=== PATIENT | male | born 1990 | race Caucasian/White ===

== ENCOUNTER 2018-11-07 07:45 | Observation (INO) | payer OTHER ==
[~2018-11-07] VITALS: Ht 188 cm; Wt 86.2 kg
[~2018-11-07 07:45] MED LIST: HYDACE5 PO; [UNRECOGNIZED DRUG - REMARK]
[2018-11-07 17:20] LABS: Source, Urine Clean Catch
[2018-11-07 17:25] LABS: BASOPHILS ABSOLUTE AUTO 0.04 K/mm3 (0.00-0.23); BASOPHILS PERCENT AUTO 1 % (0-2); EOSINOPHILS ABSOLUTE AUTO 0.35 K/mm3 (0.00-0.68); EOSINOPHILS PERCENT AUTO 5 % (0-6); Hematocrit 41.7 % (37.0-53.0); Hemoglobin 13.9 g/dL (13.5-17.5); IMMATURE GRAN ABSOLUTE AUTO 0.01 K/mm3 (0.00-0.10); IMMATURE GRAN PERCENT AUTO 0 % (0-1); LYMPHOCYTES PERCENT AUTO 43 % (21-46); MONOCYTES ABSOLUTE AUTO 0.81 K/mm3 (0.16-1.47); MONOCYTES PERCENT AUTO 12 % (4-13); Mean Corpuscular HGB 28.5 pg (26.0-34.0); Mean Corpuscular HGB Conc 33.3 g/dL (31.5-36.5); Mean Corpuscular Volume 86 fL (80-100); Mean Platelet Volume 12.4 fL (9.1-12.4); NEUTROPHILS ABSOLUTE AUTO 2.76 K/mm3 (1.96-9.15); NEUTROPHILS PERCENT AUTO 40 % (41-73); Platelet Count 165 K/mm3 (150-400); RDW Coefficient Variation 12.4 % (11.7-14.2); RDW Standard Deviation 38.8 fL (35.1-46.3); Red Blood Cell Count 4.87 M/mm3 (4.30-5.90); White Blood Cell Count 6.97 K/mm3 (4.00-11.30)
[2018-11-07 17:26] LABS: Bilirubin, Urine Neg (Neg); Blood, Urine Neg (Neg); Glucose Qualitative, Urine Neg (Neg); Ketones, Urine Neg (Neg); Leukocyte Esterase, Urine Neg (Neg); Nitrite, Urine Neg (Neg); Protein, Urine Neg (Neg); Urobilinogen, Urine NORM (Normal); pH, Urine 6.5 (5.0-8.0)
[2018-11-07 17:40] LABS: U Amphetamine Screen Not Detected; U Barbituate Screen Not Detected; U Benzodiazapine Screen Not Detected; U Buprenorphine Screen Not Detected; U Cannabinoids Screen Not Detected; U Cocaine Screen Not Detected; U Methadone Screen Not Detected; U Methamphetamine Screen Not Detected; U Opiates Screen Not Detected; U Oxycodone Screen Not Detected; U Phencyclidine Screen Not Detected; U Propoxyphene Screen Not Detected
[2018-11-07 17:42] LABS: Appearance, Urine Clear (Clear); Color, Urine Yellow (P-Yellow)
[2018-11-07 17:52] LABS: Alanine Aminotransfer (ALT/SGP 25 U/L (12-78); Albumin, Blood 4.2 g/dL (3.4-5.0); Albumin/Globulin Ratio 1.3 (0.8-1.8); Alk Phos 61 U/L (50-136); Anion Gap 5 mmol/L (6-16); Aspartate Aminotrans (AST/SGOT 19 U/L (12-37); Bilirubin, Total 2.4 mg/dL (0.1-1.0); Blood Urea Nitrogen 9 mg/dL (8-24); Bun/Creatinine Ratio 12.9 (12.0-20.0); CO2, Blood 29 mmol/L (21-32); Calcium, Blood 8.6 mg/dL (8.5-10.1); Chloride, Blood 108 mmol/L (98-108); Ethanol (Alcohol), Blood, Med <3 mg/dL; Globulin, Blood 3.2 g/dL (2.2-4.0); Glomerular Filtration Rate >60 (60-); Glucose, Blood 82 mg/dL (70-99); Potassium, Blood 4.5 mmol/L (3.5-5.5); Salicylate <1.7 mg/dL (2.8-20.0); Sodium, Blood 142 mmol/L (136-145); Total Protein, Blood 7.4 g/dL (6.4-8.2)
[2018-11-07 17:58] LABS: Thyroid Stimulating Hormone 0.692 uIU/mL (0.360-4.800)
[2018-11-07 18:03] LABS: Acetaminophen, Random <2.0 ug/mL (10.0-30.0)
== END 2018-11-09 17:58 ==
LOC: ER 07:45 → EOR 07:46
PROVIDERS: ADMIT Emergency Medicine
DX: F23 Brief psychotic disorder (principal); T33.521A Superficial frostbite of right hand, initial encounter; T33.522A Superficial frostbite of left hand, initial encounter; T33.822A Superficial frostbite of left foot, initial encounter; T33.821A Superficial frostbite of right foot, initial encounter; F17.210 Nicotine dependence, cigarettes, uncomplicated; Z88.5 Allergy status to narcotic agent; X31.XXXA Exposure to excessive natural cold, initial encounter
CPT/HCPCS: 80053; 81003; 84443; 85025; 96372; 99285-25; G0378; G0480; J1200; J1630; Q3014

== ENCOUNTER 2019-06-09 10:11 | Emergency (ER) | payer OTHER ==
[~2019-06-09] VITALS: Ht 188 cm; Wt 86.2 kg
[2019-06-09] MEDS ORDERED: PALI3TAB (10:20)
== END 2019-06-09 10:37 | disposition left against medical advice (07) ==
LOC: ER 10:11
DX: Z53.21 Procedure and treatment not carried out due to patient leaving prior to being seen by health care provider (principal)

== ENCOUNTER 2019-07-30 09:00 | Observation (INO) | payer OTHER ==
[~2019-07-30] VITALS: Ht 185.4 cm; Wt 95.2 kg
[~2019-07-30 09:00] MED LIST changes: +PALI3TAB
[2019-07-30 12:09] LABS: BASOPHILS ABSOLUTE AUTO 0.03 K/mm3 (0.00-0.23); BASOPHILS PERCENT AUTO 0 % (0-2); EOSINOPHILS ABSOLUTE AUTO 0.11 K/mm3 (0.00-0.68); EOSINOPHILS PERCENT AUTO 1 % (0-6); Hematocrit 42.1 % (37.0-53.0); Hemoglobin 14.2 g/dL (13.5-17.5); IMMATURE GRAN ABSOLUTE AUTO 0.04 K/mm3 (0.00-0.10); IMMATURE GRAN PERCENT AUTO 0 % (0-1); LYMPHOCYTES ABSOLUTE AUTO 1.83 K/mm3 (0.84-5.20); LYMPHOCYTES PERCENT AUTO 17 % (21-46); MONOCYTES ABSOLUTE AUTO 0.94 K/mm3 (0.16-1.47); MONOCYTES PERCENT AUTO 9 % (4-13); Mean Corpuscular HGB 28.9 pg (26.0-34.0); Mean Corpuscular HGB Conc 33.7 g/dL (31.5-36.5); Mean Corpuscular Volume 86 fL (80-100); Mean Platelet Volume 11.6 fL (9.1-12.4); NEUTROPHILS PERCENT AUTO 72 % (41-73); Platelet Count 218 K/mm3 (150-400); RDW Coefficient Variation 11.9 % (11.7-14.2); RDW Standard Deviation 36.4 fL (35.1-46.3); Red Blood Cell Count 4.92 M/mm3 (4.30-5.90); White Blood Cell Count 10.55 K/mm3 (4.00-11.30)
[2019-07-30 12:35] LABS: Alanine Aminotransfer (ALT/SGP 53 U/L (12-78); Albumin, Blood 4.3 g/dL (3.4-5.0); Albumin/Globulin Ratio 1.1 (0.8-1.8); Alk Phos 65 U/L (50-136); Anion Gap 6 mmol/L (6-16); Aspartate Aminotrans (AST/SGOT 48 U/L (12-37); Bilirubin, Total 1.8 mg/dL (0.1-1.0); Blood Urea Nitrogen 15 mg/dL (8-24); Bun/Creatinine Ratio 17.4 (12.0-20.0); CO2, Blood 29 mmol/L (21-32); Calcium, Blood 8.7 mg/dL (8.5-10.1); Chloride, Blood 105 mmol/L (98-108); Creatinine, Blood 0.86 mg/dL (0.60-1.20); Ethanol (Alcohol), Blood, Med <3 mg/dL; Glomerular Filtration Rate >60 (60-); Glucose, Blood 124 mg/dL (70-99); Salicylate <1.7 mg/dL (2.8-20.0); Sodium, Blood 140 mmol/L (136-145); Total Protein, Blood 8.3 g/dL (6.4-8.2)
[2019-07-30 12:38] LABS: Acetaminophen, Random <2.0 ug/mL (10.0-30.0)
== END 2019-07-30 18:25 | disposition home or self-care (01) ==
LOC: ER 09:00 → EOR 09:01
PROVIDERS: ADMIT Emergency Medicine
DX: F23 Brief psychotic disorder (principal); F32.9 Major depressive disorder, single episode, unspecified; F41.9 Anxiety disorder, unspecified; F43.20 Adjustment disorder, unspecified; F17.210 Nicotine dependence, cigarettes, uncomplicated; Z88.5 Allergy status to narcotic agent; Z79.899 Other long term (current) drug therapy
CPT/HCPCS: 36415; 80053; 85025; 99285; G0378; G0480

== ENCOUNTER 2019-08-01 06:51 | Emergency (ER) | payer OTHER ==
[~2019-08-01] VITALS: Ht 188 cm; Wt 81.7 kg
== END 2019-08-01 10:00 | disposition home or self-care (01) ==
LOC: ER 06:51
DX: S90.822A Blister (nonthermal), left foot, initial encounter (principal); S90.821A Blister (nonthermal), right foot, initial encounter; F20.9 Schizophrenia, unspecified; F17.200 Nicotine dependence, unspecified, uncomplicated; Z88.5 Allergy status to narcotic agent; Z59.0 Homelessness; X58.XXXA Exposure to other specified factors, initial encounter
CPT/HCPCS: 90471; 90714; 99283-25

== ENCOUNTER 2019-08-10 00:38 | Emergency (ER) | payer OTHER ==
[~2019-08-10] VITALS: Ht 180.3 cm; Wt 81.7 kg
== END 2019-08-10 02:50 | disposition home or self-care (01) ==
LOC: ER 00:38
DX: J06.9 Acute upper respiratory infection, unspecified (principal)
CPT/HCPCS: 99283

== ENCOUNTER 2019-10-11 21:16 | Emergency (ER) | payer OTHER | END 2019-10-11 22:12 | disposition left against medical advice (07) | LOC: ER 21:16 | DX: Z53.21 Procedure and treatment not carried out due to patient leaving prior to being seen by health care provider (principal) ==

== ENCOUNTER 2019-11-10 00:25 | Emergency (ER) | payer OTHER ==
[~2019-11-10] VITALS: Ht 185.4 cm; Wt 77.1 kg
== END 2019-11-10 00:45 | disposition home or self-care (01) ==
LOC: ER 00:25
DX: F20.9 Schizophrenia, unspecified (principal); F41.9 Anxiety disorder, unspecified; F32.9 Major depressive disorder, single episode, unspecified; F17.200 Nicotine dependence, unspecified, uncomplicated; Z88.5 Allergy status to narcotic agent
CPT/HCPCS: 99282

== ENCOUNTER 2020-02-06 23:10 | Emergency (ER) | payer MEDICAID ==
[2020-02-07] MEDS ORDERED: Vistaril25 MG PO (13:46)
== END 2020-02-06 23:25 | disposition left against medical advice (07) ==
LOC: ER 23:10
DX: Z53.21 Procedure and treatment not carried out due to patient leaving prior to being seen by health care provider (principal)

== ENCOUNTER 2020-02-07 12:34 | Emergency (ER) | payer OTHER ==
[~2020-02-07] VITALS: Ht 182.9 cm; Wt 81.7 kg
[2020-02-07] MEDS ORDERED: Vistaril25 MG PO (13:46)
== END 2020-02-07 13:53 | disposition home or self-care (01) ==
LOC: ER 12:34
DX: F41.9 Anxiety disorder, unspecified (principal); F43.9 Reaction to severe stress, unspecified; F32.9 Major depressive disorder, single episode, unspecified; F20.9 Schizophrenia, unspecified; Z88.5 Allergy status to narcotic agent
CPT/HCPCS: 99283

== ENCOUNTER 2020-02-11 02:38 | Emergency (ER) | payer OTHER ==
[~2020-02-11] VITALS: Ht 185.4 cm; Wt 81.7 kg
[~2020-02-11 02:38] MED LIST changes: +Vistaril25 MG PO
== END 2020-02-11 03:15 | disposition home or self-care (01) ==
LOC: ER 02:38
DX: T25.221A Burn of second degree of right foot, initial encounter (principal); L55.9 Sunburn, unspecified; Z88.5 Allergy status to narcotic agent
CPT/HCPCS: 99283

== ENCOUNTER 2020-03-06 23:11 | Observation (INO) | payer OTHER ==
[~2020-03-06] VITALS: Ht 185.4 cm; Wt 81.7 kg
[2020-03-25] MEDS ORDERED: OLAN10 PO (22:22)
== END 2020-03-07 01:05 | disposition left against medical advice (07) ==
LOC: ER 23:11 → EOR 23:12
PROVIDERS: ADMIT Emergency Medicine
DX: F29 Unspecified psychosis not due to a substance or known physiological condition (principal); F32.9 Major depressive disorder, single episode, unspecified; F41.9 Anxiety disorder, unspecified; F20.9 Schizophrenia, unspecified; Z88.5 Allergy status to narcotic agent; F17.200 Nicotine dependence, unspecified, uncomplicated
CPT/HCPCS: 99285; G0378; Q3014

== ENCOUNTER 2021-02-27 16:04 | Emergency (ER) | payer SELFPAY ==
[~2021-02-27] VITALS: Ht 185.4 cm; Wt 68.0 kg
[~2021-02-27 16:04] MED LIST changes: +OLAN10 PO
== END 2021-02-27 17:37 | disposition left against medical advice (07) ==
LOC: ER 16:04
DX: R53.83 Other fatigue (principal); Z53.21 Procedure and treatment not carried out due to patient leaving prior to being seen by health care provider
CPT/HCPCS: 99283

== ENCOUNTER 2021-02-27 17:47 | Emergency (ER) | payer SELFPAY ==
[~2021-02-27] VITALS: Ht 185.4 cm; Wt 66.2 kg
== END 2021-02-27 19:47 | disposition home or self-care (01) ==
LOC: ER 17:47
DX: T67.5XXA Heat exhaustion, unspecified, initial encounter (principal); F17.200 Nicotine dependence, unspecified, uncomplicated; Z88.5 Allergy status to narcotic agent; Z79.899 Other long term (current) drug therapy
CPT/HCPCS: 99283

== ENCOUNTER 2021-03-10 17:45 | Emergency (ER) | payer OTHER ==
[~2021-03-10] VITALS: Ht 185.4 cm; Wt 81.7 kg
== END 2021-03-10 20:35 | disposition left against medical advice (07) ==
LOC: ER 17:45
DX: L98.9 Disorder of the skin and subcutaneous tissue, unspecified (principal); Z53.21 Procedure and treatment not carried out due to patient leaving prior to being seen by health care provider
CPT/HCPCS: 99282

== ENCOUNTER 2021-03-13 04:56 | Inpatient (IN) | payer OTHER ==
[~2021-03-13] VITALS: Ht 185.4 cm; Wt 67.0 kg
[2021-03-13 08:13] LABS: BASOPHILS ABSOLUTE AUTO 0.03 K/mm3 (0.00-0.23); BASOPHILS PERCENT AUTO 0 % (0-2); EOSINOPHILS ABSOLUTE AUTO 0.07 K/mm3 (0.00-0.68); EOSINOPHILS PERCENT AUTO 1 % (0-6); Hematocrit 30.3 % (37.0-53.0); Hemoglobin 9.6 g/dL (13.5-17.5); IMMATURE GRAN ABSOLUTE AUTO 0.03 K/mm3 (0.00-0.10); IMMATURE GRAN PERCENT AUTO 0 % (0-1); LYMPHOCYTES ABSOLUTE AUTO 1.71 K/mm3 (0.84-5.20); LYMPHOCYTES PERCENT AUTO 22 % (21-46); MONOCYTES ABSOLUTE AUTO 0.77 K/mm3 (0.16-1.47); MONOCYTES PERCENT AUTO 10 % (4-13); Mean Corpuscular HGB 27.9 pg (26.0-34.0); Mean Corpuscular HGB Conc 31.7 g/dL (31.5-36.5); Mean Corpuscular Volume 88 fL (80-100); Mean Platelet Volume 11.5 fL (9.1-12.4); NEUTROPHILS ABSOLUTE AUTO 5.27 K/mm3 (1.96-9.15); NEUTROPHILS PERCENT AUTO 67 % (41-73); Platelet Count 228 K/mm3 (150-400); RDW Coefficient Variation 13.3 % (11.7-14.2); RDW Standard Deviation 42.6 fL (35.1-46.3); Red Blood Cell Count 3.44 M/mm3 (4.30-5.90); White Blood Cell Count 7.88 K/mm3 (4.00-11.30)
[2021-03-13 08:32] LABS: Alanine Aminotransfer (ALT/SGP 12 U/L (12-78); Albumin, Blood 2.9 g/dL (3.4-5.0); Albumin/Globulin Ratio 0.7 (0.8-1.8); Alk Phos 64 U/L (50-136); Anion Gap 5 mmol/L (6-16); Aspartate Aminotrans (AST/SGOT 8 U/L (12-37); Bilirubin, Total 0.5 mg/dL (0.1-1.0); Blood Urea Nitrogen 6 mg/dL (8-24); Bun/Creatinine Ratio 11.6 (12.0-20.0); CO2, Blood 30 mmol/L (21-32); Calcium, Blood 8.2 mg/dL (8.5-10.1); Chloride, Blood 105 mmol/L (98-108); Creatinine, Blood 0.52 mg/dL (0.60-1.20); Globulin, Blood 3.9 g/dL (2.2-4.0); Glomerular Filtration Rate >60 (60-); Glucose, Blood 94 mg/dL (70-99); Potassium, Blood 3.7 mmol/L (3.5-5.5); Sodium, Blood 140 mmol/L (136-145); Total Protein, Blood 6.8 g/dL (6.4-8.2)
--- NOTE | 2021-03-13 13:29 | NUR ---
ADMIT.... RECEIVED PT FROM ED, ALERT AND ORIENTED, MAKING NO COMPLAINTS OF PAIN OR SOB AT THE TIME. PT HAS A FLAT AFFECT AND DENIES ALL, INCLUDING PSYCHIATRIC, SMOKING AND DRUG USE HX. 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 PSYCHOMOTOR DISTURBANCES NOTED. STABLE ON HIS FEET, BED IN LOW POSITION AND CALL LIGHT WITHIN REACH.
--- NOTE | 2021-03-13 14:17 | NUR ---
AMA... PT LEFT AMA AFTER BEING EDUCATED ON HIS CURRENT ILLNESS. PT WAS ABLE TO VERBALIZE UNDERSTANDING RE RISKS OF LEAVING AMA, INCLUDING RISK FOR WORSENING INFECTION AND . PT WAS ALSO INFORMED ON HIS CURRENT LAB VALUES AND VS. THIS POLE PEELER TRIED TO ASSURE PT THAT PROPPER AND TIMELY CARE WOULD TAKE PLACE IF HE STAYED AND THAT SS RESOURCES WERE AVAILABLE IF DESIRED. PT WAS CALM AND STATED "NO THANKS" MANY TIMES. HIS IV WAS DC'D AND PT LEFT AMBULATORY WITH BELONGINGS. AMA PAPERWORK SIGNED.
== END 2021-03-13 14:13 | disposition left against medical advice (07) | DRG 603 ==
LOC: ER 04:56 → ERHOLD 04:57 → MEDS 11:34
PROVIDERS: Emergency Medicine; ADMIT Internal Medicine
DX: L03.115 Cellulitis of right lower limb (principal); F41.9 Anxiety disorder, unspecified; F32.9 Major depressive disorder, single episode, unspecified; F20.9 Schizophrenia, unspecified; F17.210 Nicotine dependence, cigarettes, uncomplicated; Z72.89 Other problems related to lifestyle; Z88.5 Allergy status to narcotic agent
CPT/HCPCS: 36415; 73630; 80053; 83605; 85025; 87040; 96365; 99284-25; J0690; J0696; J7040

== ENCOUNTER 2021-04-04 06:45 | Emergency (ER) | payer OTHER ==
[~2021-04-04] VITALS: Ht 185.4 cm; Wt 77.1 kg
[2021-04-04 08:33] LABS: Hematocrit 36.1 % (37.0-53.0); Hemoglobin 11.8 g/dL (13.5-17.5); Mean Corpuscular HGB 28.6 pg (26.0-34.0); Mean Corpuscular HGB Conc 32.7 g/dL (31.5-36.5); Mean Corpuscular Volume 88 fL (80-100); RDW Standard Deviation 43.9 fL (35.1-46.3); Red Blood Cell Count 4.12 M/mm3 (4.30-5.90); White Blood Cell Count 6.25 K/mm3 (4.00-11.30)
[2021-04-04 08:34] LABS: BASOPHILS ABSOLUTE AUTO 0.03 K/mm3 (0.00-0.23); BASOPHILS PERCENT AUTO 1 % (0-2); EOSINOPHILS ABSOLUTE AUTO 0.23 K/mm3 (0.00-0.68); EOSINOPHILS PERCENT AUTO 4 % (0-6); IMMATURE GRAN ABSOLUTE AUTO 0.03 K/mm3 (0.00-0.10); IMMATURE GRAN PERCENT AUTO 1 % (0-1); LYMPHOCYTES PERCENT AUTO 29 % (21-46); MONOCYTES ABSOLUTE AUTO 0.62 K/mm3 (0.16-1.47); MONOCYTES PERCENT AUTO 10 % (4-13); Mean Platelet Volume 11.9 fL (9.1-12.4); NEUTROPHILS ABSOLUTE AUTO 3.54 K/mm3 (1.96-9.15); NEUTROPHILS PERCENT AUTO 57 % (41-73); Platelet Count 152 K/mm3 (150-400); RDW Coefficient Variation 13.6 % (11.7-14.2)
[2021-04-04 08:59] LABS: Alanine Aminotransfer (ALT/SGP 24 U/L (12-78); Albumin, Blood 3.5 g/dL (3.4-5.0); Alk Phos 65 U/L (50-136); Anion Gap 4 mmol/L (6-16); Aspartate Aminotrans (AST/SGOT 18 U/L (12-37); Bilirubin, Total 1.1 mg/dL (0.1-1.0); Blood Urea Nitrogen 11 mg/dL (8-24); Bun/Creatinine Ratio 19.4 (12.0-20.0); CO2, Blood 30 mmol/L (21-32); Calcium, Blood 8.3 mg/dL (8.5-10.1); Chloride, Blood 106 mmol/L (98-108); Creatinine, Blood 0.57 mg/dL (0.60-1.20); Ethanol (Alcohol), Blood, Med <3 mg/dL; Globulin, Blood 3.6 g/dL (2.2-4.0); Glomerular Filtration Rate >60 (60-); Glucose, Blood 97 mg/dL (70-99); Salicylate <1.7 mg/dL (2.8-20.0); Sodium, Blood 140 mmol/L (136-145); Total Protein, Blood 7.1 g/dL (6.4-8.2)
[2021-04-04 09:01] LABS: Source, Urine Voided
[2021-04-04 09:02] LABS: Acetaminophen, Random <2.0 ug/mL (10.0-30.0)
[2021-04-04 09:12] LABS: Appearance, Urine Turbid (Clear); Bilirubin, Urine Neg (Neg); Blood, Urine Neg (Neg); Color, Urine Yellow (P-Yellow); Glucose Qualitative, Urine Neg (Neg); Ketones, Urine Neg (Neg); Leukocyte Esterase, Urine Neg (Neg); Nitrite, Urine Neg (Neg); Protein, Urine Neg (Neg); Urobilinogen, Urine 1+ (Normal)
[2021-04-04 09:58] LABS: Amorphous Heavy (0-Heavy); Bacteria Not Seen /hpf; Red Blood Cells, Urine Not Seen /hpf (0-2); Squamous Epithelial Cells Not Seen /hpf (Few); White Blood Cells, Urine Not Seen /hpf (0-5)
[2021-04-04 10:02] LABS: U Amphetamine Screen Not Detected; U Barbituate Screen Not Detected; U Methamphetamine Screen Not Detected
[2021-04-04 10:03] LABS: U Benzodiazapine Screen Not Detected; U Buprenorphine Screen Not Detected; U Cannabinoids Screen Not Detected; U Cocaine Screen Not Detected; U Methadone Screen Not Detected; U Opiates Screen Not Detected; U Oxycodone Screen Not Detected; U Phencyclidine Screen Not Detected; U Propoxyphene Screen Not Detected
[2021-04-04] MEDS ORDERED: OLAN5 PO (10:30)
== END 2021-04-04 10:48 | disposition home or self-care (01) ==
LOC: ER 06:45
PROVIDERS: Emergency Medicine
DX: F29 Unspecified psychosis not due to a substance or known physiological condition (principal); Z88.5 Allergy status to narcotic agent
CPT/HCPCS: 36415; 80053; 81001; 85025; 99284; G0480; Q3014

== ENCOUNTER 2021-07-13 01:01 | Emergency (ER) | payer OTHER ==
[~2021-07-13] VITALS: Ht 185.4 cm; Wt 81.7 kg
[~2021-07-13 01:01] MED LIST changes: +OLAN5 PO
== END 2021-07-13 02:05 | disposition home or self-care (01) ==
LOC: ER 01:01
DX: S80.02XA Contusion of left knee, initial encounter (principal); R45.6 Violent behavior; F17.210 Nicotine dependence, cigarettes, uncomplicated; Z88.5 Allergy status to narcotic agent; X58.XXXA Exposure to other specified factors, initial encounter
CPT/HCPCS: 99283

== ENCOUNTER 2021-07-19 20:38 | Emergency (ER) | payer OTHER ==
[~2021-07-19] VITALS: Ht 185.4 cm; Wt 81.7 kg
== END 2021-07-19 23:08 | disposition home or self-care (01) ==
LOC: ER 20:38
DX: S29.012A Strain of muscle and tendon of back wall of thorax, initial encounter (principal); S80.12XA Contusion of left lower leg, initial encounter; F17.210 Nicotine dependence, cigarettes, uncomplicated; X58.XXXA Exposure to other specified factors, initial encounter
CPT/HCPCS: 93971; 99283-25; A9270

== ENCOUNTER 2021-10-27 23:10 | Emergency (ER) | payer OTHER ==
[~2021-10-27] VITALS: Ht 185.4 cm; Wt 81.7 kg
[2021-10-27] MEDS ORDERED: QUETIAPINE FUMA50 M2 PO (23:51)
== END 2021-10-28 00:08 | disposition home or self-care (01) ==
LOC: ER 23:10
DX: F20.9 Schizophrenia, unspecified (principal); F17.210 Nicotine dependence, cigarettes, uncomplicated; Z91.14 Patient's other noncompliance with medication regimen
CPT/HCPCS: 99284; A9270

== ENCOUNTER 2021-11-07 19:19 | Observation (INO) | payer OTHER ==
[~2021-11-07] VITALS: Ht 185.4 cm; Wt 81.7 kg
[~2021-11-07 19:19] MED LIST changes: +QUETIAPINE FUMA50 M2 PO
[2021-11-07 20:33] LABS: BASOPHILS ABSOLUTE AUTO 0.06 K/mm3 (0.00-0.23); BASOPHILS PERCENT AUTO 1 % (0-2); EOSINOPHILS ABSOLUTE AUTO 0.31 K/mm3 (0.00-0.68); EOSINOPHILS PERCENT AUTO 4 % (0-6); Hematocrit 41.6 % (37.0-53.0); Hemoglobin 13.7 g/dL (13.5-17.5); IMMATURE GRAN ABSOLUTE AUTO 0.05 K/mm3 (0.00-0.10); IMMATURE GRAN PERCENT AUTO 1 % (0-1); LYMPHOCYTES ABSOLUTE AUTO 2.16 K/mm3 (0.84-5.20); LYMPHOCYTES PERCENT AUTO 27 % (21-46); MONOCYTES ABSOLUTE AUTO 0.67 K/mm3 (0.16-1.47); MONOCYTES PERCENT AUTO 8 % (4-13); Mean Corpuscular HGB 27.8 pg (26.0-34.0); Mean Corpuscular HGB Conc 32.9 g/dL (31.5-36.5); Mean Corpuscular Volume 84 fL (80-100); NEUTROPHILS ABSOLUTE AUTO 4.73 K/mm3 (1.96-9.15); NEUTROPHILS PERCENT AUTO 59 % (41-73); Platelet Count 224 K/mm3 (150-400); RDW Coefficient Variation 13.4 % (11.7-14.2); RDW Standard Deviation 41.5 fL (35.1-46.3); Red Blood Cell Count 4.93 M/mm3 (4.30-5.90); White Blood Cell Count 7.98 K/mm3 (4.00-11.30)
[2021-11-07 20:53] LABS: Alanine Aminotransfer (ALT/SGP 27 U/L (12-78); Albumin, Blood 3.7 g/dL (3.4-5.0); Albumin/Globulin Ratio 0.9 (0.8-1.8); Alk Phos 84 U/L (50-136); Anion Gap 6 mmol/L (6-16); Aspartate Aminotrans (AST/SGOT 20 U/L (12-37); Bilirubin, Total 0.5 mg/dL (0.1-1.0); Blood Urea Nitrogen 12 mg/dL (8-24); CO2, Blood 28 mmol/L (21-32); Calcium, Blood 8.7 mg/dL (8.5-10.1); Chloride, Blood 107 mmol/L (98-108); Creatinine, Blood 0.67 mg/dL (0.60-1.20); Ethanol (Alcohol), Blood, Med <3 mg/dL; Globulin, Blood 3.9 g/dL (2.2-4.0); Glomerular Filtration Rate >60 (60-); Glucose, Blood 112 mg/dL (70-99); Potassium, Blood 3.5 mmol/L (3.5-5.5); Salicylate <1.7 mg/dL (2.8-20.0); Sodium, Blood 141 mmol/L (136-145); Total Protein, Blood 7.6 g/dL (6.4-8.2)
[2021-11-07 20:56] LABS: Acetaminophen, Random <2.0 ug/mL (10.0-30.0)
[2021-11-08 01:28] LABS: Influenza A, PCR NEGATIVE (NEGATIVE); Influenza B, PCR NEGATIVE (NEGATIVE); Resp Syncytial Virus, PCR NEGATIVE (NEGATIVE); SARS-Cov-2 (COVID-19) PCR, MMC NEGATIVE (NEGATIVE)
[2021-11-08 15:07] LABS: U Amphetamine Screen Not Detected; U Barbituate Screen Not Detected; U Benzodiazapine Screen Not Detected; U Buprenorphine Screen Not Detected; U Cannabinoids Screen Not Detected; U Cocaine Screen Not Detected; U Methadone Screen Not Detected; U Methamphetamine Screen Not Detected; U Opiates Screen Not Detected; U Oxycodone Screen Not Detected; U Phencyclidine Screen Not Detected; U Propoxyphene Screen Not Detected
[2021-11-08 15:24] LABS: Bilirubin, Urine Neg (Neg); Blood, Urine Neg (Neg); Glucose Qualitative, Urine Neg (Neg); Ketones, Urine Neg (Neg); Leukocyte Esterase, Urine Neg (Neg); Nitrite, Urine Neg (Neg); Protein, Urine Neg (Neg); Urobilinogen, Urine NORM (Normal)
[2021-11-08 15:40] LABS: Appearance, Urine Clear (Clear); Color, Urine Pale Yellow (P-Yellow)
== END 2021-11-10 12:46 | disposition home or self-care (01) ==
LOC: ER 19:19 → EOR 19:20
PROVIDERS: Physician Assistant; ADMIT Student in an Organized Health Care Education/Training Program
DX: F20.9 Schizophrenia, unspecified (principal); F15.10 Other stimulant abuse, uncomplicated; F17.210 Nicotine dependence, cigarettes, uncomplicated; Z20.822 Contact with and (suspected) exposure to COVID-19; Z88.5 Allergy status to narcotic agent
CPT/HCPCS: 0241U; 36415; 80053; 81003; 85025; A9270; G0480

== ENCOUNTER 2022-11-15 03:19 | Emergency (ER) | payer SELFPAY ==
[~2022-11-15] VITALS: Ht 185.4 cm; Wt 81.7 kg
[2022-11-15 07:06] LABS: BASOPHILS ABSOLUTE AUTO 0.03 K/mm3 (0.00-0.23); BASOPHILS PERCENT AUTO 0 % (0-2); EOSINOPHILS ABSOLUTE AUTO 0.11 K/mm3 (0.00-0.68); EOSINOPHILS PERCENT AUTO 1 % (0-6); Hematocrit 38.1 % (37.0-53.0); Hemoglobin 13.2 g/dL (13.5-17.5); IMMATURE GRAN ABSOLUTE AUTO 0.03 K/mm3 (0.00-0.10); IMMATURE GRAN PERCENT AUTO 0 % (0-1); LYMPHOCYTES PERCENT AUTO 26 % (21-46); MONOCYTES ABSOLUTE AUTO 1.16 K/mm3 (0.16-1.47); MONOCYTES PERCENT AUTO 11 % (4-13); Mean Corpuscular HGB 28.9 pg (26.0-34.0); Mean Corpuscular HGB Conc 34.6 g/dL (31.5-36.5); Mean Corpuscular Volume 84 fL (80-100); Mean Platelet Volume 12.5 fL (9.1-12.4); NEUTROPHILS ABSOLUTE AUTO 6.43 K/mm3 (1.96-9.15); NEUTROPHILS PERCENT AUTO 61 % (41-73); Platelet Count 178 K/mm3 (150-400); RDW Coefficient Variation 12.5 % (11.7-14.2); RDW Standard Deviation 38.1 fL (35.1-46.3); Red Blood Cell Count 4.56 M/mm3 (4.30-5.90); White Blood Cell Count 10.46 K/mm3 (4.00-11.30)
[2022-11-15 07:21] LABS: Albumin, Blood 3.5 g/dL (3.4-5.0); Bilirubin, Total 1.5 mg/dL (0.1-1.0); Bun/Creatinine Ratio 23.1 (12.0-20.0); Calcium, Blood 8.4 mg/dL (8.5-10.1); Creatinine, Blood 0.78 mg/dL (0.60-1.20); Globulin, Blood 3.6 g/dL (2.2-4.0); Potassium, Blood 3.9 mmol/L (3.5-5.5); Total Protein, Blood 7.1 g/dL (6.4-8.2)
[2022-11-15] MEDS ORDERED: ONDA4ODT MM (07:52)
== END 2022-11-15 08:13 | disposition home or self-care (01) ==
LOC: ER 03:19
PROVIDERS: Emergency Medicine
DX: R11.2 Nausea with vomiting, unspecified (principal); Z88.5 Allergy status to narcotic agent; Z79.899 Other long term (current) drug therapy; F17.210 Nicotine dependence, cigarettes, uncomplicated
CPT/HCPCS: 36415; 80053; 83690; 85025; 99284; A9270

== ENCOUNTER 2022-12-07 21:48 | Emergency (ER) | payer SELFPAY ==
[~2022-12-07] VITALS: Ht 185.4 cm; Wt 63.5 kg
[~2022-12-07 21:48] MED LIST changes: +ONDA4ODT MM
[2022-12-07 22:40] LABS: Calcium, Ionized (POC) 1.05 mmol/L (1.10-1.46); Chloride (POC) 105 mmol/L (98-108); Creatinine (POC) 0.8 mg/dL (0.8-1.3); Glucose (ISTAT POC) 116 mg/dL (70-99); Hemoglobin (POC) 11.9 g/dL (13.5-17.5); Potassium (POC) 3.8 mmol/L (3.5-5.5); Sodium (POC) 142 mmol/L (135-148); Total CO2 (POC) 28 mmol/L (21-32)
== END 2022-12-07 23:45 | disposition home or self-care (01) ==
LOC: ER 21:48
PROVIDERS: Emergency Medicine
DX: E86.0 Dehydration (principal); F17.210 Nicotine dependence, cigarettes, uncomplicated; Z88.5 Allergy status to narcotic agent
CPT/HCPCS: 36415; 80047; 84484; 85014; 93005; 93010; 99284-25; J7120

== ENCOUNTER 2025-04-12 22:14 | Observation (INO) | payer OTHER ==
[~2025-04-12] VITALS: Ht 185.4 cm; Wt 81.7 kg
[~2025-04-12 22:14] MED LIST changes: +IBUP400 PO
[2025-04-12 23:31] LABS: BASOPHILS ABSOLUTE AUTO 0.04 K/mm3 (0.00-0.23); BASOPHILS PERCENT AUTO 1 % (0-2); EOSINOPHILS ABSOLUTE AUTO 0.34 K/mm3 (0.00-0.68); EOSINOPHILS PERCENT AUTO 4 % (0-6); Hematocrit 35.7 % (37.0-53.0); Hemoglobin 11.7 g/dL (13.5-17.5); IMMATURE GRAN ABSOLUTE AUTO 0.01 K/mm3 (0.00-0.10); IMMATURE GRAN PERCENT AUTO 0 % (0-1); LYMPHOCYTES ABSOLUTE AUTO 1.72 K/mm3 (0.84-5.20); LYMPHOCYTES PERCENT AUTO 22 % (21-46); MONOCYTES ABSOLUTE AUTO 0.75 K/mm3 (0.16-1.47); MONOCYTES PERCENT AUTO 10 % (4-13); Mean Corpuscular HGB Conc 32.8 g/dL (31.5-36.5); Mean Corpuscular Volume 86 fL (80-100); NEUTROPHILS ABSOLUTE AUTO 5.04 K/mm3 (1.96-9.15); NEUTROPHILS PERCENT AUTO 64 % (41-73); NRBC ABSOLUTE 0.00 K/mm3 (0.00-0.02); NRBC Auto 0.0 /100 WBC (0.0-0.2); Platelet Count 192 K/mm3 (150-400); RDW Coefficient Variation 12.7 % (11.7-14.2); RDW Standard Deviation 40.0 fL (35.1-46.3)
[2025-04-12 23:50] LABS: Ethanol (Alcohol), Blood, Med <3 mg/dL; Salicylate <1.7 mg/dL (2.8-20.0)
[2025-04-12 23:51] LABS: Acetaminophen, Random <2.0 ug/mL (10.0-30.0); Alanine Aminotransfer (ALT/SGP 29 U/L (12-78); Albumin, Blood 3.4 g/dL (3.4-5.0); Albumin/Globulin Ratio 0.9 (0.8-1.8); Anion Gap 8 mmol/L (3-11); Aspartate Aminotrans (AST/SGOT 25 U/L (12-37); Bilirubin, Total 0.5 mg/dL (0.1-1.0); Blood Urea Nitrogen 15 mg/dL (8-24); CO2, Blood 28 mmol/L (21-32); Calcium, Blood 8.2 mg/dL (8.5-10.1); Chloride, Blood 110 mmol/L (98-108); Creatinine, Blood 1.50 mg/dL (0.60-1.20); Globulin, Blood 3.9 g/dL (2.2-4.0); Glucose, Blood 109 mg/dL (70-99); Potassium, Blood 3.7 mmol/L (3.5-5.5); Sodium, Blood 142 mmol/L (136-145); Total Protein, Blood 7.3 g/dL (6.4-8.2)
[2025-04-13 08:39] VITALS: BP 124/79
[2025-04-13 12:12] LABS: Source, Urine Voided
[2025-04-13 12:16] LABS: Bilirubin, Urine Neg (Neg); Color, Urine Yellow (P-Yellow); Glucose Qualitative, Urine Neg (Neg); Ketones, Urine Neg (Neg); Leukocyte Esterase, Urine Neg (Neg); Protein, Urine Neg (Neg); Specific Gravity, Urine 1.010 (1.003-1.022); Urobilinogen, Urine NORM (Normal)
[2025-04-13 12:29] LABS: Red Blood Cells, Urine Not Seen /hpf (0-2); White Blood Cells, Urine Not Seen /hpf (0-5)
[2025-04-13 12:45] LABS: U Amphetamine Screen Not Detected; U Barbituate Screen Not Detected; U Benzodiazapine Screen Not Detected; U Buprenorphine Screen Not Detected; U Cannabinoids Screen Not Detected; U Cocaine Screen Not Detected; U Methadone Screen Not Detected; U Methamphetamine Screen Not Detected; U Opiates Screen Not Detected; U Oxycodone Screen Not Detected; U Phencyclidine Screen Not Detected
== END 2025-04-13 14:13 | disposition other institution (70) ==
LOC: ER 22:14 → EOR 22:15 → EDBEDREQSVC 04-13 09:34 → EDBEDREQ 04-13 09:34 → EOR 04-13 14:13
PROVIDERS: Student in an Organized Health Care Education/Training Program; ADMIT Student in an Organized Health Care Education/Training Program
DX: F32.A Depression, unspecified (principal); R45.851 Suicidal ideations; F20.9 Schizophrenia, unspecified; Z87.891 Personal history of nicotine dependence; Z88.5 Allergy status to narcotic agent
CPT/HCPCS: 80053; 80320; 81001; 85025; 93005; 93010; 99285-25; G0378; G0480

== ENCOUNTER 2025-04-13 08:17 | Inpatient (IN) | payer OTHER ==
[~2025-04-13] VITALS: Ht 185.4 cm; Wt 72.5 kg
[2025-04-13] MEDS ORDERED: Aluminum Hydroxide 320MG/5ML 473 ML PO PRN (10:45)
[2025-04-13] MEDS ORDERED: Ondansetron 4 MG SoluTab MM PRN (10:50)
[2025-04-13] MEDS ORDERED: Polyethylene Glycol 3350 17 gm PO PRN (10:50)
[2025-04-13 14:27] VITALS: BP 127/88
[2025-04-13 14:44] VITALS: BP 127/88
--- NOTE | 2025-04-13 17:56 | NUR ---
SHIFT SUMMARY PT ADMITTED FROM [facility] ED THIS SHIFT. PT REPORTS THAT HE CAME IN FOR SI FOR THE PAST 3-4 DAYS. PT STATES THAT THE SI DOES NOT HAVE A PARTICULAR TRIGGER AND THAT IT JUST STARTED TO HAPPEN. HE DENIES ANY OTHER PSYCH HISTORY. PT STATES THAT HE WOULD LIKE TO GET ON SOME MEDICATIONS AND TO HOPEFULLY MAKE THE SUICIDAL THOUGHTS STOP. SKIN CHECK CONDUCTED WITH ALICIA ARTEAGA. RED, PEELING SKIN VISUALIZED TO PT'S FACE AND BACK OF NECK. PT STATES IT IS A BADLY PEELING SUNBURN. PT ORIENTED TO HIS ROOM AND UNIT AND SHOWERED AFTER ADMISSION INTERVIEW. PT CURRENTLY INVOLUNTARY AND MONITORED Q15 PER UNIT PROTOCOL.
[2025-04-13 21:17] VITALS: BP 106/71
--- NOTE | 2025-04-13 22:52 | NUR ---
MID SHIFT SUMMARY FOR REPORT OFF: PT HAS REMAINED IN ROOM ALL NIGHT. DID NOT COME OUT FOR SNACK. NO INTEREST IN JOINING ACTIVITIES ON UNIT. STATES HE JUST NEEDS TO BE IN HIS ROOM AND BE ALONE. NOTED SIGNIFICANT PEELING FROM SUNBURN ON FACE, NECK, BACK. PT STATES IT MAKES HIM UNCOMFORTABLE BUT DENIES NEED FOR IBUPROFEN OR TYLENOL TO ASSIST WITH DISCOMFORT. PT DOES NOT OFFER ANY CONVERSATION OTHER THAN ANSWERING DIRECT QUESTIONS FROM STAFF. CONTINUE 15 MIN CHECKS FOR SAFETY PER UNIT PROTOCOL. DENIES SI/HI.
--- NOTE | 2025-04-14 04:49 | NUR ---
END OF SHIFT UPDATE ASSUMED CARE OF PT AT 2330. NO ACUTE CHANGES. PT HAS REMAINED IN BED THROUGHOUT THE NIGHT. Q15 MINUTE ROUNDING TO CONTINUE PER PT SAFETY/UNIT PROTOCOL.
[2025-04-14] MEDS ORDERED: Multivitamins 1 Tab PO SCH (09:00)
[2025-04-14 09:09] VITALS: BP 128/85
[2025-04-14 09:17] LABS: CHOL/HDL RATIO 2.9; Cholesterol 144 mg/dL (50-200); HDL Cholesterol 49 mg/dL (>39); LDL/HDL RATIO 1.6; Low Density Lipoprotein Chol 80 mg/dL (0-110); Triglycerides 77 mg/dL (30-140); Very Low Density Lipoprot Chol 15 mg/dL (6-28)
--- NOTE | 2025-04-14 18:03 | NUR ---
SHIFT SUMMARY NO ACUTE CHANGES THIS SHIFT. PT DENIES SI, HI, AVTH, BUT STILL APPEARS GUARDED. HE DECLINED TO PARTICIPATE IN GROUPS AND ISOLATED IN HIS ROOM FOR THE MAJORITY OF THE SHIFT. HE CONTINUES TO BE MONITORED Q15 FOR SAFETY AND WELLNESS.
[2025-04-14 20:42] VITALS: BP 147/99
--- NOTE | 2025-04-15 04:39 | NUR ---
SHIFT SUMMARY PATIENT RESTING QUIETLY IN BED AT BEGINNING OF SHIFT. ANSWERING DIRECT QUESTIONS, WITH SHORT PRECISE ANSWERS. DENIES SI, HI, OR AVH. PATIENT BACK TO BED AFTER SNACK. COOPERATIVE WITH HS MEDICATIONS DENIES NEED FOR SLEEP AID. APPEARS TO BE SLEEPING WELL T/O NIGHT, RESP EVEN AND UNLABORED. CONTINUE TO MONITOR Q15MIN
[2025-04-15 08:42] VITALS: BP 122/92
--- NOTE | 2025-04-15 17:30 | NUR ---
SHIFT SUMMARY: PT ALERT AND COOPERATIVE WITH CARE. DENIES SI, HI AND AVH WITH SHORT ANSWERS OF NO. BLUNTED AFFECT. PT SPENT TIME RESTING IN BED AND PACING IN THE HALLS. HE WAS PRESENT FOR MEALS AND ATTEND AFTERNOON GROUPS. DISCUSSED NEW ORDER FOR PROZAC WITH PT, HE DENIED QUESTIONS AND REFUSED OFFERED PRINTED EDUCATION. STATED, "I DON'T NEED THAT, BUT THANK YOU".
[2025-04-15 19:53] VITALS: BP 107/72
--- NOTE | 2025-04-16 04:47 | NUR ---
SHIFT SUMMARY PATIENT RESTING QUIETLY IN HIS ROOM, UP FOR SNACK THEN RETURNING TO ROOM. DENIES SI, HI, OR AVH. CONTINUES TO ANSWER DIRECT QUESTIONS WITH SHORT CONCISE ANSWERS. APPEARS GUARDED AND HAVING FLAT AFFECT. COOPERATIVE WITH HS MEDICATIONS. APPEARS TO BE SLEEPING WELL T/O NIGHT RESP EVEN AND UNLABORED. CONTINUE TO MONITOR Q15MIN
[2025-04-16 08:48] VITALS: BP 119/90
--- NOTE | 2025-04-16 17:09 | NUR ---
SHIFT SUMMARY: PT ALERT, ORIENTED AND COOPERATIVE WITH CARE. BLUNTED AFFECT. HE DENIES SI, HI AND AVH. RESPONDED TO QUESTIONS WITH SHORT YES OR NO ANSWERS. HE IS COMPLIANT WITH HIS MEDICATIONS AND WAS PRESENT FOR GROUPS. PT WAS OFFERED LOTION TO ASSIST WITH DRY SKIN FROM SUNBURN BUT HE DECLINED. PT SPENT TIME IN HIS ROOM AND PACING IN THE MAYNARD. WAS MEDICATE WITH PRN PER EMAR FOR C/O HEADACHE AND REPORTED DECREASE IN PAIN AFTER.
[2025-04-16 20:11] VITALS: BP 103/73
--- NOTE | 2025-04-17 00:06 | NUR ---
SHIFT SUMMARY Pt is A&O, calm, cooperative, eye contact is good. Pt s mood is good, affect is blunted. Pt denies SI, HI, and hallucinations. Pt remained in his room most of the evening, but did come out for snack and medications. No PRNs were given. Staff continues to monitor q15m for safety and wellness.
--- NOTE | 2025-04-17 04:58 | NUR ---
SHIFT SUMMARY (AFTER 0030): PATIENT TRANSFERRED TO THIS RN'S CARE AT 0030. HE CONTINUED TO BE IN BED RESTING WITH EYES CLOSED AND RESPIRATIONS CONFIRMED FOR THE REMAINDER OF THE SHIFT. NO ISSUES OR CONCERNS WERE NOTED. CONTINUING TO MONITOR FOR SAFETY WITH Q15 MINUTE CHECKS.
[2025-04-17 09:04] VITALS: BP 123/82
--- NOTE | 2025-04-17 09:56 | NUR ---
SHIFT ASSESSMENT: PT WAS AWOKEN FOR ASSESSMENT, HE DENIED SI, HI, AVH, ANXIETY AND PHYSICAL PAIN. PT DESCRIBED HIS MOOD , "GOOD." HIS AFFECT WAS FLAT. PT ATE BREAKFAST AND RETURNED TO HIS BED.
--- NOTE | 2025-04-17 15:59 | NUR ---
PT PARTICIPATED IN THE "COME TO YOUR SENSES" GROUP. HE DECLINED TO TAKE PART IN THE SCRATCH ART GROUP. PT HAS SPENT MOST OF THE DAY ON HIS BED. HE HAS BEEN COOPERATIVE WITH CARE. WILL CONTINUE TO MONITOR Q15 MINUTES PER UNIT PROTOCOL.
[2025-04-17 19:53] VITALS: BP 118/84
--- NOTE | 2025-04-18 06:07 | NUR ---
SHIFT SUMMARY Pt is A&O, calm, cooperative, eye contact is good. Pt s mood is good, affect is euthymic and full. Pt denies SI, HI, and hallucinations. Pt took a shower near the beginning of the shift. He mostly walked the hallway until evening snack. During interview, pt stated that he has been sleeping well and needs no PRN for insomnia. He also feels that he is ready for discharge on Sunday. PRN melatonin given for sleep at 2325. Staff continues to monitor q15m for safety and wellness.
[2025-04-18 08:55] VITALS: BP 119/85
--- NOTE | 2025-04-18 18:09 | NUR ---
SHIFT SUMMARY PT HAS BEEN ENGAGED FOR MEALS/SNACKS. HE DENIES SI/HI/AVH. SPENT MOST OF SHIFT IN HIS ROOM SLEEPING. HE DID EPISODES OF PACING THE MAYNARD. SEEMS A BIT WITHDRAWN, DOESN'T VERBALLY ENGAGE ANY MORE THAN HE HAS TO DO SO. HE DID RECEIVE Q15 MIN SAFETY CHECKS THROUGHOUT THE SHIFT.
[2025-04-18 19:51] VITALS: BP 117/80
--- NOTE | 2025-04-19 05:15 | NUR ---
SHIFT SUMMARY Pt is A&O to all, calm, cooperative, eye contact is appropriate. Pt s stated mood is really good, affect is constricted. Pt denies SI, HI, and hallucinations. He also denies current pain or other medical issues. Pt has tended to stay in his room during the evening, coming out only for evening snack and medications. Staff continues to monitor q15m for safety and wellness.
[2025-04-19 08:12] VITALS: BP 117/87
--- NOTE | 2025-04-19 17:43 | NUR ---
SHIFT SUMMARY PT A/O X4; COOPERATIVE WITH CARE. PT DENIES SI, HI, AVTH. HOWEVER, HIS AFFECT IS GUARDED AND SOMEWHAT FLAT. HE OFTEN PACES THE MAYNARD AND DOES NOT INTERACT WITH PEERS OFTEN. HE ATTENDED ALL GROUPS AND MEALS THIS SHIFT. PT TO POTENTIALLY DISCHARGE TO [facility] TOMORROW.
[2025-04-19 22:17] VITALS: BP 125/89
--- NOTE | 2025-04-20 05:28 | NUR ---
SHIFT SUMMARY Pt is A&O to all, calm, cooperative, eye contact is appropriate. Pt s stated mood is "good," affect is constricted. Pt denies SI, HI, and hallucinations. He also denies current pain or other medical issues. Pt stated that he feels he is ready for discharge tomorrow and knows what to expect when he is discharged to [facility] for follow-up evaluation and care. Pt has tended to stay in his room during the evening, coming out only for evening snack and medications. Staff continues to monitor q15m for safety and wellness.
--- NOTE | 2025-04-20 09:40 | NUR ---
IMPORTANT DISCHARGE INFORMATION PATIENT BEING DISCHARGED TODAY TO [facility]. [facility]. [facility] TO PICK HIM UP AROUND 1PM. ALL PARTIES VERBALIZE AN UNDERSTANDING. FOLLOW UP WITH NEW PCP DR. MERCADO AT [facility] ON 04/24/25 AT 3:20PM. FOLLOW UP WITH [facility] [address] [place] [address] PHARMACY: [facility] FAX # [phone]
[2025-04-20 09:51] VITALS: BP 123/88
[2025-04-20] MEDS ORDERED: Prozac20 MG PO ×2 (12:13)
[2025-04-20] MEDS ORDERED: HYDPAM50 PO ×2 (12:14)
[2025-04-20] MEDS ORDERED: MELA3 PO ×2 (12:14)
[2025-04-20] MEDS ORDERED: OLAN20 MM ×2 (12:15)
--- NOTE | 2025-04-20 13:11 | NUR ---
DISCHARGE SUMMARY PT GIVEN D/C INFORMATION PACKET AND STATES UNDERSTANDING, ACKNOWLEDGEMENT FORM SIGNED. MEDICATIONS SENT TO [facility]. PT GIVEN BELONGINGS AND FORM SIGNED. HE DRESSED HIMSELF IN THE SECLUSION BATHROOM. PT AMBULATED OUT TO [facility] THAT WAS ARRANGED BY D/C MANAGER OF PROJECT MANAGEMENT TO TAKE HIM TO [facility]. PT WAS OFFERED A HEADLICE TREATMENT KIT, BUT HE DECLINED IT.
== END 2025-04-20 13:10 | disposition home or self-care (01) | DRG 885 ==
LOC: BHU 08:17
PROVIDERS: ADMIT Student in an Organized Health Care Education/Training Program
DX: F25.1 Schizoaffective disorder, depressive type (principal); Z88.5 Allergy status to narcotic agent; Z79.899 Other long term (current) drug therapy
CPT/HCPCS: 36415; 80061; 83036; A9270